=== PATIENT | male | born 1965 | race Asian ===

== ENCOUNTER 2021-06-28 13:52 | Emergency (ER) | payer BC, OTHER ==
[~2021-06-28] VITALS: Ht 170.2 cm; Wt 72.6 kg
[2021-06-28] MEDS ORDERED: MORPHINE SULFATE 4 MG/ML SYR/VIAL IV ONE (14:45)
[2021-06-28] MEDS ORDERED: PROMETHAZINE HCL 25 MG/ML 1ML IV ONE (14:45)
[2021-06-28] MEDS ORDERED: cefTRIAXone 1GM/50ML D5W 50 ML IV ONE (16:45)
[2021-06-28 17:27] VITALS: BP 138/88
== END 2021-06-28 18:48 | disposition left against medical advice (07) ==
LOC: ER 13:52 → EDBD 13:52 → ER 18:48
DX: S62.623A Displaced fracture of middle phalanx of left middle finger, initial encounter for closed fracture (principal); S61.213A Laceration without foreign body of left middle finger without damage to nail, initial encounter; I10 Essential (primary) hypertension; W26.8XXA Contact with other sharp object(s), not elsewhere classified, initial encounter; Y93.89 Activity, other specified; Y92.89 Other specified places as the place of occurrence of the external cause; Y99.8 Other external cause status
CPT/HCPCS: 73130; 96365; 96375; 99284; J0696; J2270; J2550